=== PATIENT | female | born 1985 | race Two or more races ===

== ENCOUNTER 2018-03-14 18:39 | Emergency (ER) | payer SELFPAY ==
[2018-03-14] MEDS ORDERED: Iopamidol 755 MG/ML 150 ML Bottle IV ONE (20:51)
[2018-03-14] MEDS ORDERED: Diatrizoate Meglumine/Diatrizoate Sodium 37% 30 ML Bottle PO SCH (21:00)
[2018-03-14] MEDS ORDERED: Ketorolac 60 MG/2 ML SDV IM ONE (21:44)
[2018-03-14] MEDS ORDERED: hydrOXYzine HCl 50 MG/ML SDV IM ONE (21:44)
--- NOTE | 2018-03-14 23:03 | ER ---
DATE SEEN: 03/14/2018 TIME SEEN: 1900 hours. REASON FOR VISIT: Abdominal pain. HISTORY OF PRESENT ILLNESS: This is a 32-year-old , complaining of abdominal pain. Pain is [id number], has been going on most of the day, it is poorly localized, but most painful at the left lower quadrant. It is associated with some nausea, but no diarrhea or vomiting. No fever. She has not taken anything to relieve the pain. She further complains that she has anxiety. REVIEW OF SYSTEMS: She denies urinary symptoms, vaginal drainage, or bleeding. She denies because she has an Nexplanon. PAST SURGICAL HISTORY: Left nephrectomy. PAST MEDICAL HISTORY: Anxiety disorder. ALLERGIES: No known allergies. SOCIAL HISTORY: She drinks alcohol occasionally. PHYSICAL EXAMINATION: GENERAL: She is mildly ill. VITAL SIGNS: Her blood pressure is normal. Pulse is 91. ENT: Negative. CHEST: Clear. ABDOMEN: Nontender except the left lower quadrant and right upper quadrant. Bowel sounds are present. No masses. LABORATORY DATA: Normal including a UA and a CBC and CMP. CT abdomen and pelvis revealed cholelithiasis, a cyst on the right adnexa 4 x 4 cm, and a ventral abdominal hernia with fat. IMPRESSION: 1. Abdominal pain. 2. Right adnexal mass. 3. Cholelithiasis. 4. Anxiety. PLAN: 1. Ketorolac and Vistaril. 2. Advised her to be seen tomorrow. 3. Referral to General Surgery to discuss treatment for cholelithiasis and also to have a pelvic ultrasound to further evaluate the right adnexa mass. /[id number] MINNIE/ELIECER
== END 2018-03-14 22:20 | disposition home or self-care (01) ==
LOC: FB.ED 18:39
DX: K80.20 Calculus of gallbladder without cholecystitis without obstruction (principal); F41.9 Anxiety disorder, unspecified; R19.09 Other intra-abdominal and pelvic swelling, mass and lump; K43.9 Ventral hernia without obstruction or gangrene
CPT/HCPCS: 36415; 74177; 80053; 81001; 82150; 85025; 96372; 99284; J1885; J3410; Q9963; Q9967